=== PATIENT | male | born 1985 | race Caucasian/White ===

== ENCOUNTER 2018-05-17 13:37 | Emergency (ER) | payer OTHER ==
[~2018-05-17] VITALS: Ht 172.7 cm; Wt 63.5 kg
[2018-05-17] MEDS ORDERED: BACTRIM DS TAB1 EACH PO (15:25)
[2018-05-17] MEDS ORDERED: IBUPROFEN 600600 M1 PO (15:25)
[2018-05-17 16:47] VITALS: BP 151/70
== END 2018-05-17 16:05 | disposition home or self-care (01) ==
LOC: ER 13:37
DX: L02.215 Cutaneous abscess of perineum (principal); L73.8 Other specified follicular disorders